=== PATIENT | female | born 1970 | race Caucasian/White ===

== ENCOUNTER 2020-08-21 16:58 | Outpatient (CLI) | payer BC, SELFPAY ==
--- NOTE | ~2020-08-21 | US_ITS ---
EXAMINATION: US thyroid DATE: 08/21/2020 17:28 INDICATION: Thyroid asymmetry with localized swelling, mass or lump TECHNIQUE: Multiple ultrasound images of the thyroid were obtained. COMPARISON: None. FINDINGS: The right thyroid lobe measures 5.4 x 2.1 x 1.8 cm. The left thyroid lobe measures 5.1 x 2.0 x 1.8 c m. There is heterogeneous decreased echogenicity and coarsened echotexture throughout the thyroid. Th ere is also diffusely increased vascular flow throughout the thyroid on color Doppler. No discrete no dules identified. IMPRESSION: 1. Mildly enlarged and heterogeneous thyroid with diffuse increased vascular flow which could be seen with thyroiditis. No discrete thyroid nodules. Reviewed, dictated and finalized at location A. IMPRESSION: 1. Mildly enlarged and heterogeneous thyroid with diffuse increased vascular fl ow which could be seen with thyroiditis. No discrete thyroid nodules.
== END 2020-08-21 16:59 | disposition home or self-care (01) ==
LOC: ANHIMG 17:01
PROVIDERS: Visit Provider Internal Medicine
DX: R22.1 Localized swelling, mass and lump, neck (principal); E04.9 Nontoxic goiter, unspecified
CPT/HCPCS: 76536

== ENCOUNTER 2023-05-24 12:03 | Emergency (ER) | payer BC, SELFPAY ==
[2023-05-24] VITALS (11 sets, daily range): BP systolic 125–162; BP diastolic 64–78; PULSE 62–88; RESP 11–21; TEMP 36.7; O2SAT 100
--- NOTE | ~2023-05-24 | CT_ITS ---
EXAMINATION: CT abdomen pelvis w con DATE: 05/24/2023 14:05 INDICATION: Epigastric abdominal pain. TECHNIQUE: Computed tomography (CT) of the abdomen and pelvis was performed with 100 mL Omnipaque 350 intravenous contrast. Automated exposure control and iterative reconstruction technique were employe d. The dose-length product was 648.76 mGy-cm. COMPARISON: None. FINDINGS: The visualized portions of the lung bases demonstrate mild atelectasis. No pleural effusion . The heart size is normal. No pericardial effusion. There is a 1.9 cm hemangioma in right hepatic lo be characterized by interrupted peripheral puddling of contrast. There are gallstones in the gallblad honorio, which is normal in size. The spleen, pancreas, adrenal glands, and kidneys are normal. There are no dilated loops of bowel. The appendix is normal. There are no pathologically enlarged lymph nodes. There is no free intraperitoneal fluid. There is mild thoracic spondylosis. IMPRESSION: 1. Cholelithiasis. No evidence of acute cholecystitis. Reviewed, dictated and finalized at location E.
--- NOTE | ~2023-05-24 | XR_ITS ---
XR chest 2V DATE: 05/24/2023 13:53 INDICATION: Epigastric pain TECHNIQUE: PA and lateral views COMPARISON: None FINDINGS: There is mild thoracic dextroscoliosis. Normal heart size. No hilar or mediastinal enlargement. No pulmonary infiltrate or consolidation, pleural effusion or pulmonary vascular congestion or pneumo thorax is detected. IMPRESSION: No active cardiopulmonary disease Reviewed, dictated and finalized at location A.
--- NOTE | 2023-05-24 12:13 | ECG_ITS ---
Measurements Intervals [place] Rate: 62 P: 24 MA: 153 QRS: -15 QRSD: 95 T: 61 QT: 445 QTc: 453 Interpretive Statements SINUS RHYTHM INCOMPLETE RIGHT BUNDLE BRANCH BLOCK BORDERLINE R WAVE PROGRESSION, ANTERIOR LEADS BORDERLINE ECG NO PREVIOUS ECG AVAILABLE FOR COMPARISON Electronically Signed On 05-24-2023 15:11:15 CDT by Tereso Bland D.O.
--- NOTE | 2023-05-24 13:07 | ED.ABDPAIN ---
HPI - Abdominal Pain General Chief Complaint: Abdominal Pain Stated Complaint: abdominal pain Time Seen by Provider: 05/24/23 13:07 History of Present Illness HPI narrative: 52 YEARS OLD WHITE FEMALE WAS COMING HER HAIR AT HOME SUDDENLY FELT SHARP STABBING PAIN ACROSS UPPER ABDOMEN ASSOCIATED WITH DIAPHORESIS LASTS FOR 1 HOURS AT REST, DID NOT GET BETTER WITH MYLANTA THE PATIENT DENIES ANY CHEST PAIN OR SHORTNESS OF BREATH OR BACK PAIN. PATIENT DENIES HAVING SIMILAR SYMPTOMS. HISTORY OF HYPOTHYROIDISM, DOES NOT SMOKE OR USE DRUGS, DRINKS OCCASIONALLY. Related Data Allergies Allergy/AdvReac Type Severity Reaction Status Date / Time Penicillins Allergy Rash Verified 05/24/23 13:25 Review of Systems Review of Systems: All systems reviewed & are unremarkable except as noted in HPI and below PMFSH Family History Family History Mother Family history of diabetes mellitus in first degree relative Father Family history of coronary artery disease Grandparent Diabetes mellitus Social History Social History Smoking status: Never smoker Second hand tobacco smoke exposure: No Alcohol intake: current Exam Narrative: GENERAL APPEARANCE: WELL-DEVELOPED, WELL-NOURISHED SKIN: NORMAL COLOR HEAD: NORMOCEPHALIC, NONTRAUMATIC EYES: CLEAR CONJUNCTIVA ENT: OROPHARYNX NORMAL, EARS NORMAL, NOSE NORMAL NECK: SUPPLE, NONTENDER CHEST AND RESPIRATORY: AIRWAY PATENT, NO RESPIRATORY DISTRESS, NO ACCESSORY MUSCLE USE HEART: REGULAR RATE/RHYTHM ABDOMEN: SOFT, MILD EPIGASTRIC TENDERNESS, NO ORGANOMEGALY, QUIET BOWEL SOUNDS VASCULAR: NORMAL PERIPHERAL PULSES, NORMAL CAPILLARY REFILL. MUSCULOSKELETAL: NORMAL RANGE OF MOTION, NONTENDER BACK NEUROLOGIC: ALERT AND ORIENTED ?3, CHIEF MERCHANDISING OFFICER IS NORMAL TESTED, NO GROSS MOTOR DEFICIT Course Vital Signs Vital signs: Vital Signs Temperature 36.7 C 05/24/23 12:09 Pulse Rate 66 05/24/23 12:09 Respiratory Rate 16 05/24/23 12:09 Blood Pressure 162/78 H 05/24/23 12:09 Pulse Oximetry 100 05/24/23 12:09 Oxygen Delivery Room Air 05/24/23 12:09 Temperature 36.7 C 05/24/23 12:09 Pulse Rate 66 05/24/23 12:09 Respiratory Rate 16 05/24/23 12:09 Blood Pressure 162/78 H 05/24/23 12:09 Pulse Oximetry 100 05/24/23 12:09 Oxygen Delivery Room Air 05/24/23 12:09 MDM - Abdominal Pain MDM Narrative Medical decision making narrative: PATIENT PRESENTS WITH SUDDEN ONSET OF EPIGASTRIC SHARP STABBING PAIN AT REST, LASTED UP TO 1 HOUR, PHYSICAL EXAMINATION SHOWED MILD TENDERNESS IN THE EPIGASTRIC AREA DIFFERENTIAL DIAGNOSIS INCLUDE GASTRITIS, ESOPHAGITIS, CHOLECYSTITIS, PANCREATITIS, CONSTIPATION, COLITIS, LESS LIKELY CARDIAC RELATED SYMPTOMS. BLOOD WORKUP SHOWED WBC OF 12.4, AST OF 231, ALT 94. PATIENT IS TELLING ME THAT SHE HAD HISTORY OF ELEVATED LIVER ENZYMES. CHEST X-RAY SHOWED NO ACUTE ABNORMALITIES, CT ABDOMEN AND PELVIS WITH IV CONTRAST SHOWED CHOLELITHIASIS WITHOUT EVIDENCE OF CHOLECYSTITIS. EPIGASTRIC PAIN COULD BE SECONDARY TO STRESS RELATED SYMPTOMS, GERD, SPASM, GET LIKE FEELING. I PLAN TO DISCHARGE PATIENT ON [facility]ENT[facility] AND FOLLOW UP WITH DR. BOUDREAUX WITHIN THE NEXT FEW DAYS. CURRENTLY PATIENT IS ASYMPTOMATIC AND BLADDER TO BE DISCHARGED HOME. THE PT WAS DISCHARGED TO HOME.THE PT,S CONDITION UPON DISCHARGE WAS FAIR,EDUCATION WAS PROVIDED TO THE PT IN REFERENCE TO THE FINAL IMPRESSION,DISCHARGE STUDY RESULTS,TREATMENT,PROGNOSIS AND NEED FOR FOLLOW UP . Differential Diagnosis Differential diagnosis: Likely other ( ABOVE) Lab Data 05/24/23 13:27 05/24/23 13:27
[2023-05-24] MEDS: SODIUM CHLORIDE 0.9% IV 1,000 ML 999 ML IV CONT (13:26)
[2023-05-24 13:34] LABS: Basophils Percent Auto 0.3 % (0.2-1.2); Eosinophils Percent Auto 0.2 % (0-4.4); Hematocrit 38.9 % (37.0-47.0); Immature Granulocyte Absolute 0.05 K/mm3 (0.00-0.031); Immature Granulocyte Percent A 0.4 % (0-0.5); Lymphocytes Absolute Auto 1.37 K/mm3 (0.9-3.2); Mean Corpuscular HGB Conc 33.4 g/dl (32-36); Mean Corpuscular Volume 86.6 fl (80-100); Mean Platelet Volume 9.3 fl (7.4-10.4); Monocytes Absolute Auto 0.7 K/mm3 (0.1-0.6); Monocytes Percent Auto 5.5 % (2.6-8.5); Neutrophils Absolute Auto 10.2 K/mm3 (1.3-6.7); Neutrophils Percent Auto 82.6 % (45.5-73.1); Platelet Count Result 262 k/mm3 (150-375); Red Blood Count 4.49 M/mm3 (4.2-5.4); Red Cell Distribution Width 12.9 % (11.5-14.5); White Blood Count 12.4 K/mm3 (4.5-10.0)
[2023-05-24 13:44] LABS: Alanine Aminotransferase 94 U/L (6-35); Albumin Level 4.2 g/dL (3.5-5.1); Alkaline Phosphatase 75 U/L (38-126); Anion Gap 9 mmol/L (8-16); Aspartate Amino Transferase 231 U/L (14-36); Bilirubin,Total 0.9 mg/dL (0.2-1.3); Blood Urea Nitrogen 18 mg/dL (7-17); Carbon Dioxide 22 mmol/L (22-30); Chloride 108 mmol/L (98-107); Estimated CRCL calculation 67 ml/min; Estimated Glomerular Filt Rate > 60; Glucose 151 mg/dL (65-110); Lipase 56 U/L (23-300); Potassium 3.7 mmol/L (3.4-5.0); Sodium 139 mmol/L (137-145)
== END 2023-05-24 15:19 | disposition home or self-care (01) ==
PROVIDERS: Emergency Provider Emergency Medicine; PCP Internal Medicine
DX: R10.13 Epigastric pain (principal); K80.20 Calculus of gallbladder without cholecystitis without obstruction; I45.10 Unspecified right bundle-branch block; R94.31 Abnormal electrocardiogram [ECG] [EKG]
CPT/HCPCS: 36415; 71046; 74177; 80053; 83690; 85025; 93005; 96360; 99284; J7030; Q9967